=== PATIENT | female | born 1990 | race Caucasian/White ===

== ENCOUNTER 2017-01-24 05:37 | Inpatient (IN) ==
[2017-01-24] MEDS ORDERED: DiphenhydrAMINE 25 MG CAPSULE PO PRN ×2 (05:58→14:09)
[2017-01-24] MEDS ORDERED: ACETAMINOPHEN 500 MG TABLET PO PRN ×3 (05:58→14:09)
[2017-01-24 06:09] VITALS: RESP 16; BMI 35.5
[2017-01-24] MEDS ORDERED: CARBOPROST 250 MCG/ML INJECTION IM PRN (06:57)
[2017-01-24] MEDS ORDERED: LIDOCAINE 1% (10mg/ml) 2mL INJ PF SDV ID PRN (06:57)
[2017-01-24] MEDS ORDERED: CALCIUM CARBONATE Chewable 500mg TABLET PO PRN ×2 (06:57→14:09)
[2017-01-24] MEDS ORDERED: MAG-AL + SIM ORAL LIQUID 30ml PO PRN ×2 (06:57→14:09)
[2017-01-24] MEDS ORDERED: METHYLERGONOVINE 0.2 MG/ML INJECTION IM PRN (06:57)
[2017-01-24] MEDS: LR 1,000 ML IV PRN ×2 (07:36→09:54)
[2017-01-24] MEDS ORDERED: ONDANSETRON 4 MG/2 ML INJECTION IVP PRN (08:22)
[2017-01-24] MEDS ORDERED: ROPIVACAINE 1% 10MG/ML INJ 200 MG, SUFentanil 50 MCG in NS 100 ML EPI PRN (08:22)
[2017-01-24] MEDS ORDERED: DiphenhydrAMINE 50 MG/ML INJECTION IVP PRN (08:22)
[2017-01-24] MEDS ORDERED: NALOXONE 0.4 MG/ML INJECTION IVP PRN (08:22)
--- NOTE | 2017-01-24 08:22 | Anesthesia Preoperative Report ---
Anesthesia Epidural/Spinal Rec - Date and Time Date: 01/24/17 Preoperative Diagnosis: Term spontaneous labor Procedure: Labor Epidural Plan: Epidural - Vital Signs Vital Signs: Temperature 97.7 F 01/24/17 07:18 Pulse Rate 78 01/24/17 07:18 Respiratory Rate 16 01/24/17 07:18 Blood Pressure 115/78 01/24/17 07:18 Pulse Oximetry 98 01/24/17 07:18 Oxygen Delivery Method Room Air /Para: P:1 - Medictaions & Allergies Inpatient Medications: Current Medications Acetaminophen (Tylenol) 1,000 mg PO Q6HR PRN PRN Reason: Pain Acetaminophen (Tylenol) 500 - 1,000 mg PO Q4H PRN PRN Reason: Pain Al Hydroxide/Mg Hydroxide (Maalox Plus) 30 ml PO Q3H PRN PRN Reason: Indigestion Calcium Carbonate (Tums) 500 - 1,000 mg PO Q2H PRN PRN Reason: Indigestion Carboprost Tromethamine (Hemabate) 250 mcg IM O PRN PRN Reason: .Downtime Diphenhydramine HCl (Benadryl) 25 - 50 mg PO Q4H PRN PRN Reason: Itching Lactated Ringer's (Lactated Ringers) 1,000 mls @ 1,000 mls/hr IV .Q1H PRN PRN Reason: as directed Last Admin: 01/24/17 07:36 Dose: 1,000 mls/hr Lidocaine HCl (Xylocaine-Mpf 1% Vial) 0.2 mg ID O PRN PRN Reason: IV Start Methylergonovine Maleate (Methergine) 0.2 mg IM O PRN Misoprostol (Cytotec) 800 mcg [place] ONCE PRN Allergies/Adverse Reactions: Allergies Allergy/AdvReac Type Severity Reaction Status Date / Time No Known Allergies Allergy Verified 01/24/17 06:09 - Home Medications Home Medications: Home Medications Medication Instructions Recorded Confirmed Type Tablet 1 tab DAILY 01/04/17 01/24/17 History - Surgical History Hx Family Anesthesia Reaction: No History of Motion Sickness: No - Social History Smoking Status: Never smoker Second Hand Exposure: No Substance Use Type: does not use Alcohol Intake Frequency: does not drink Hx Chewing Tobacco Use: No - Pertinent Findings Lab Data: CBC and BMP 01/24/17 07:33 - Physical Exam Respiratory Exam: lungs clear, bilateral breath sounds equal Cardiovascular Exam: regular rate and rhythm, no murmur - Airway Assessment Mallampati Score: I TMD: 3 Fingerbreadths Neck Extension: good Overall Assessment: no airway concerns - ASA ASA Score: 2 - Discussion Discussion: Discussed risks/options/alternatives of anesthesia and questions answered. Patient consents. Nursing pain assessment noted. Anesthesia Discussion: spouse, family member Attestation Statement: Prior to the delivery of any anesthetic medication, I examined the patient, developed the plan, obtained the patient's consent and discussed the risk and benefits of the procedure with the patient/guardian.
[2017-01-24] MEDS ORDERED: HYDROCORTISONE 2.5% CREAM 30gm RECTALLY PRN (14:09)
[2017-01-24] MEDS ORDERED: HYDROCODONE/APAP 5mg/325mg TABLET PO PRN (14:09)
[2017-01-24] MEDS ORDERED: SALINE FLUSH 10ml SYRINGE IVF PRN (14:09)
[2017-01-24] MEDS ORDERED: OXYTOCIN DRIP 30 UNIT/500 ML ML IV PRN (14:09)
--- NOTE | 2017-01-24 14:23 | Labor and Delivery Note ---
DATE OF DELIVERY 01/24/2017 DELIVERY NOTE Ms. Ferreira progressed very well in first stage of labor. She began to push with excellent effort at the complete and +2 position. She pushed for about half an hour, delivering the head in the OA position. Baby was bulb suctioned on the perineum. With a further push baby was delivered in total. Baby was then further bulb suctioned and placed on mother's abdomen. After about 2 minutes the cord was nice and soft. It was doubly clamped and cut by the baby's father, Drake. This is a liveborn female with Apgars of 8/9/9, weighing 8 pounds 2.4 ounces. The placenta subsequently delivered spontaneously , intact. It had a normal configuration and a normal-appearing three-vessel cord. There was a second-degree midline laceration that was repaired in the usual fashion with 2-0 Vicryl. Total blood loss was approximately 400 ml. At the time of this dictation mother and baby are doing well. GUNNAR
--- NOTE | 2017-01-24 18:32 | Progress Note ---
OB PP Progress Note Free Text - Date Date: 01/24/17 - Progress Note Progress Note: doing well. no c/o.
--- NOTE | 2017-01-24 19:09 | Anesthesia Postoperative Note ---
- Date and Time Date: 01/24/17 Time: 19:09 - Status Patient Participated in Evaluation: Patient Participated in Person Vital Signs: Temperature 98.1 F 01/24/17 17:45 Pulse Rate 87 01/24/17 17:45 Respiratory Rate 16 01/24/17 17:45 Blood Pressure 106/58 01/24/17 17:45 Pulse Oximetry 99 01/24/17 17:45 Oxygen Delivery Method Room Air Respiratory Function: Airway Patent, Regular Respirations Cardiovascular Function: Regular Pulse Mental Status: Alert and Oriented Pain Intensity: 0 Hydration: Taking PO Fluids Complications During Recover: None Apparent - Follow-Up Instructions Instructions: Per Surgeon
[2017-01-24] MEDS: IBUPROFEN 800 MG TABLET PO SCH ×2 (23:23→23:24)
--- NOTE | 2017-01-25 08:11 | Discharge Instructions ---
Discharge Plan - Med Rec/Dispo Prescriptions: New Docusate Calcium [Surfak] 240 mg PO DAILY #30 capsule Hydrocodone/APAP 5/325 [[place] 5/325] 1 - 2 tab PO Q4H PRN #10 tablet PRN Reason: Pain Ibuprofen [Motrin] 800 mg PO Q8H #30 tablet No Action Tablet 1 tab DAILY
[2017-01-25] MEDS ORDERED: DOCUSATE CALCIUM 240 MG CAPSULE PO SCH (09:00)
[2017-01-25] MEDS ORDERED: PRENATAL VITAMIN TABLET PO SCH (09:00)
[2017-01-25] MEDS: IBUPROFEN 800 MG TABLET PO SCH (10:02)
[2017-01-25 14:09] VITALS: BP 120/66; PULSE 74; TEMP 98.4; O2SAT 100
== END 2017-01-25 14:47 | disposition home or self-care (01) | DRG 775 ==
LOC: EDSTATUS 05:37 → OBOBS 05:37 → MC 05:38 → PREOBSVTOIN 11:07 → MC 11:09
PROVIDERS: ADMIT Obstetrics & Gynecology; ATTEND Obstetrics & Gynecology